=== PATIENT | male | born 1990 | race Hispanic/Latino ===

== ENCOUNTER 2016-09-27 19:25 | Emergency (ER) | payer OTHER ==
[2016-09-27 19:47] VITALS: RESP 16
[2016-09-27] MEDS ORDERED: Sodium Chloride 0.9% 1,000 ML IV STA (20:16)
[2016-09-27 20:35] LABS: BASO # 0.1 K/uL (0.0-0.2); BASO % 1.2 % (0.0-2.0); EOS # 0.1 K/uL (0.0-0.7); EOS % 1.4 % (0.0-4.0); HEMATOCRIT 43.2 % (35.0-51.0); LYMPH # 2.6 K/uL (1.0-4.3); LYMPH % 36.5 % (20.0-40.0); MEAN CELL VOLUME 92.7 fl (80.0-94.0); MEAN CORPUSCULAR HGB CONC 33.4 g/dL (33.0-37.0); MEAN PLATELET VOLUME 9.3 fl (7.2-11.7); MONO % 14.1 % (0.0-10.0); NEUT # 3.3 K/uL (1.8-7.0); NEUT % 46.8 % (50.0-75.0); NRBC % 0.1 % (0.0-0.0); RED CELL DISTRIBUTION WIDTH 13.4 % (11.5-14.5); WHITE BLOOD COUNT 7.1 K/uL (4.8-10.8)
[2016-09-27 20:46] LABS: ALB/GLOB RATIO 1.6 (1.0-2.1); ALCOHOL SERUM < 10 mg/dl (0-10); ALKALINE PHOSPHATASE 48 U/L (38-126); ALT/SGPT 28 U/L (21-72); AST/SGOT 31 U/L (17-59); BILIRUBIN,TOTAL 0.4 mg/dl (0.2-1.3); BLOOD UREA NITROGEN 14 mg/dl (9-20); CALCIUM 9.6 mg/dL (8.4-10.2); CARBON DIOXIDE 29 mmol/L (22-30); CHLORIDE 102 mmol/L (98-107); GFR AFRICAN-AMERICAN > 60; GLUCOSE,RANDOM 91 mg/dL (75-110); LIPASE 116 U/L (23-300); MAGNESIUM 1.8 MG/DL (1.6-2.3); PHOSPHOROUS 3.9 mg/dl (2.5-4.5); POTASSIUM 3.9 MMOL/L (3.6-5.0); SODIUM 139 mmol/l (132-148); TOTAL PROTEIN 6.8 G/DL (6.3-8.2)
--- NOTE | 2016-09-27 20:49 | ED PDOC ---
HPI: SOB/CHF/COPD Time Seen by Provider: 09/27/16 19:55 Chief Complaint (Nursing): Shortness Of Breath Chief Complaint (Provider): Shortness of breath History Per: Patient Onset/Duration Of Symptoms: Days (x1) Current Symptoms Are (Timing): Still Present Additional History Per: Patient Additional Complaint(s): Nicky Cheek is a 26 year old male with a past medical history of who presents to the ED for a chief complaint of SOB onset x1day. Associated symptoms include weakness and fatigue, lightheadedness and nausea, but denies any vomit, chest pain, or shakiness. Patient took Dramamine which made him more dizzy. Patient admits to consuming 15 drinks over 7 hours yesterday, which is more than normal and using cocaine and smoking marijuana last night. Past Medical History Reviewed: Historical Data, Nursing Documentation, Vital Signs Vital Signs: Last Vital Signs Temp 98.2 F 09/27/16 23:15 Pulse 44 L 09/27/16 23:15 Resp 16 09/27/16 23:15 BP 127/70 09/27/16 23:15 Pulse Ox 99 09/27/16 23:15 - Medical History PMH: Asthma, Gastritis (Self diagnosed) Denies: Chronic Kidney Disease - Surgical History Surgical History: Tonsillectomy Other surgeries: Left clavicle fixation, ACL repair, - Family History Family History: States: No Known Family Hx - Social History Current smoker - smoking cessation education provided: Yes Ex-Smoker (has not smoked in the last 12 months): Yes Alcohol: Social Drugs: Cannabis, Cocaine - Home Medications Home Medications: Ambulatory Orders Medication Instructions Recorded Acetaminophen with Codeine 2 tab PO Q4H PRN #22 tab 02/13/15 [Tylenol with Codeine No. 3 300 mg-30 mg] Diclofenac Sodium [Voltaren] 50 mg PO Q8H PRN #60 ect 02/13/15 - Allergies Allergies/Adverse Reactions: Allergies Allergy/AdvReac Type Severity Reaction Status Date / Time peanut Allergy RASH Verified 09/27/16 19:48 Review of Systems ROS Statement: Except As Marked, All Systems Reviewed And Found Negative Constitutional: Positive for: Weakness (and very fatigue). Negative for: Other (Shakiness) Cardiovascular: Negative for: Chest Pain Respiratory: Positive for: Shortness of Breath Gastrointestinal: Positive for: Nausea. Negative for: Vomiting Neurological: Positive for: Other (Light headed) Physical Exam - Reviewed Nursing Documentation Reviewed: Yes Vital Signs Reviewed: Yes - Physical Exam Appears: Positive for: Well, No Acute Distress Head Exam: Positive for: ATRAUMATIC, NORMAL INSPECTION, NORMOCEPHALIC Skin: Positive for: Normal Color, Warm, Dry Eye Exam: Positive for: EOMI, PERRL ENT: Negative for: Pharyngeal Erythema, Tonsillar Exudate Neck: Positive for: Painless ROM, Supple Cardiovascular/Chest: Positive for: Bradycardia (regular rhythm). Negative for : Murmur Respiratory: Positive for: Normal Breath Sounds. Negative for: Wheezing, Respiratory Distress Gastrointestinal/Abdominal: Positive for: Normal Exam, Soft. Negative for: Tenderness Back: Positive for: Normal Inspection. Negative for: Vertebral Tenderness Extremity: Positive for: Normal ROM. Negative for: Deformity Lymphatic: Negative for: Adenopathy Neurologic/Psych: Positive for: Alert, Oriented, Other (Tired appearing) - Laboratory Results Result Diagrams: 09/27/16 20:30 09/27/16 20:30 - ECG ECG: Positive for: Interpreted By Me ECG Rhythm: Positive for: Sinus Bradycardia O2 Sat by Pulse Oximetry: 100 (RA) Pulse Ox Interpretation: Normal Medical Decision Making Medical Decision Makin: Initial Impression:Dehydration, weakness Initial Plan: * EKG * Alcohol Serum * CMP * Creatinine Phosphokinase * Lipase * Magnesium * Phosphorous * CBC * Dextrose 5% 1000ml * Sodium chloride 1000ml * Diazepam 2mg * Ondansetron * Oven Baker CONT * IV insertion * Re-Eval Labs unremarkable. On reevaluation at 10p pt feeling better. DW dangers of polysubstance abuse. Scribe Attestation: Documented by Edy Thomas acting as a scribe for Marilu Kevin MD. Provider Scribe Attestation: All medical record entries made by the Scribe were at my direction and personally dictated by me. I have reviewed the chart and agree that the record accurately reflects my personal performance of the history, physical exam, medical decision making, and the department course for this patient. I have also personally directed, reviewed, and agree with the discharge instructions and disposition. Disposition - Clinical Impression Clinical Impression: Weakness, Dyspnea Counseled Patient/Family Regarding: Studies Performed, Diagnosis, Need For Followup - Disposition Disposition: Routine/Home Disposition Time: 22:40 Condition: IMPROVED Additional Instructions: CONTINUE TO DRINK PLENTY OF HYDRATING NONALCOHOLIC FLUIDS REST AND AVOID STRENUOUS ACTIVITY FOLLOW UP WITH YOUR DOCTOR IN 2-3 DAYS FOR REEVALUATION Instructions: Dehydration (ED), Weakness (ED), Polysubstance Abuse (ED)
[2016-09-27 23:18] VITALS: BP 127/70; PULSE 44; TEMP 98.2
[2016-09-27 23:21] VITALS: O2SAT 100
--- NOTE | 2016-09-29 01:28 | CARD ---
APPROVED REPORT EKG Measurement Heart [id number] <Conclusion> Sinus bradycardia Otherwise normal ECG
== END 2016-09-27 23:15 | disposition home or self-care (01) ==
LOC: H.ER 19:25
DX: R53.1 Weakness (principal); R06.00 Dyspnea, unspecified; E86.0 Dehydration; R00.1 Bradycardia, unspecified; R11.0 Nausea; J45.909 Unspecified asthma, uncomplicated; Z87.891 Personal history of nicotine dependence; F19.10 Other psychoactive substance abuse, uncomplicated